=== PATIENT | male | born 1985 | race African-American/Black ===

== ENCOUNTER 2020-08-06 11:44 | Emergency (ER) | payer MEDICAID, OTHER ==
[~2020-08-06] VITALS: Ht 182.9 cm; Wt 79.0 kg
[2020-08-06 11:56] VITALS: BP 130/90
== END 2020-08-06 12:20 | disposition left against medical advice (07) ==
LOC: ER 11:44
DX: R41.82 Altered mental status, unspecified (principal); Z86.59 Personal history of other mental and behavioral disorders
CPT/HCPCS: 99283